=== PATIENT | male | born 1955 | race Hispanic/Latino ===

== ENCOUNTER → 2018-01-21 | Day surgery (SDC) | payer OTHER ==
[2018-01-19 11:07] LABS: BASOPHILS % 0.6 % (0.0-1.0); EOSINOPHILS # (AUTO) 0.1 (0.0-0.4); EOSINOPHILS % 1.1 % (0.0-6.0); HEMATOCRIT 47.5 % (38.2-49.6); HEMOGLOBIN 16.4 g/dL (14.0-18.0); LYMPHOCYTES # (AUTO) 1.5 (1.0-3.2); LYMPHOCYTES % 28.7 % (18.0-39.1); MEAN CORPUSCULAR HEMOGLOBIN 32.7 pg (28-32); MEAN CORPUSCULAR HGB CONC 34.5 g/dL (31-35); MEAN CORPUSCULAR VOLUME 94.8 fL (81-99); MONOCYTES # (AUTO) 0.4 (0.2-0.8); MONOCYTES % 8.1 % (4.4-11.3); NEUTROPHILS # (AUTO) 3.2 (2.1-6.9); NEUTROPHILS % 61.3 % (38.7-80.0); PLATELET COUNT 180 x10e3/uL (140-360); RED BLOOD COUNT 5.01 x10e6/uL (4.3-5.7); RED CELL DISTRIBUTION WIDTH 12.9 % (11.7-14.4)
[2018-01-19 11:28] LABS: ANION GAP 10.9 mmol/L (8-16); BLOOD UREA NITROGEN 11 mg/dL (7-26); BUN/CREATININE RATIO 13 (6-25); CALCIUM 9.4 mg/dL (8.4-10.2); CARBON DIOXIDE 28 mmol/L (22-29); CHLORIDE 100 mmol/L (98-107); CREATININE, SERUM 0.85 mg/dL (0.72-1.25); EST GLOMERULAR FILTRATION RATE > 60 ML/MIN (60-); GLUCOSE 103 mg/dL (74-118); POTASSIUM 3.9 mmol/L (3.5-5.1); SODIUM 135 mmol/L (136-145)
[~2018-01-21] MED LIST: ACETAMINOPHEN 1000 MG/100 ML IV ONE; BUPIVACAINE 0.25%/EPI 30ML SDV INJ ONE; CEFAZOLIN SOD 1 GM/D5W 50ML 50 ML IV ONE; DEXAMETHASONE SOD PHOS INJ 4 MG/ML VIAL ONE; EPHEDRINE SULFATE INJ 50 MG/10 ML SYR ONE; FENTANYL CITRATE/PF 100MCG/2 ML INJ ONE; GLYCOPYRROLATE 0.2 MG/ML VIAL ONE; LIDOCAINE HCL 2% LOCAL INJ 5 ML SDV VIAL INJ ONE; MIDAZOLAM HCL 2 MG/2 ML VIAL ONE; ONDANSETRON HCL INJ 2 MG/ML VIAL ONE; PROPOFOL IV EMULSION 10 MG/ML 20 ML VIAL ONE; ROCURONIUM BROMIDE 10 MG/ML 5ML VIAL ONE; SEVOFLURANE INHAL SOLN 250 ML PEN BTL ONE
--- NOTE | 2018-01-21 09:52 | Operative Report ---
DATE OF PROCEDURE: January 21, 2018 PREOPERATIVE DIAGNOSIS: Right inguinal hernia. POSTOPERATIVE DIAGNOSIS: Right inguinal hernia. PROCEDURE PERFORMED: Repair of right inguinal hernia with Ultrapro Hernia System oval type. QUALITY SYSTEMS TECHNICIAN: CARTER Nuñez ESTIMATED BLOOD LOSS: Minimal. DRAINS: None. COMPLICATIONS: None. INDICATIONS AND FINDINGS: The patient is a 62-year-old male who has been complaining of pain in the right groin for several days. INTRAOPERATIVE FINDINGS: The patient had a saccular type of herniation at the level of the pubic tubercle with herniation of perivesical fat. The Ultrapro Hernia System, oval type, was placed, covering the direct space as well as the inguinal canal floor. DESCRIPTION OF PROCEDURE: With the patient lying on the operative table in the supine position, after administration of general anesthesia, he was prepped and draped for repair of a right inguinal hernia. Preemptive anesthesia was given with 0.25% Marcaine with epinephrine as an ilioinguinal nerve block and an incisional nerve block. A transverse groin incision was made and deepened through the skin, subcutaneous tissue and Bradly fascia until the external oblique aponeurosis was identified. This was incised along the course of its fibers, transecting the external inguinal ring. Medial and lateral leaves were developed. The cord was mobilized at the level of the pubic tubercle and retracted away from the operative field by a Irena drain. The cremaster veil was incised. An indirect hernia sac was not found. A small lipoma of the cord was excised with electrocautery and tied off with 2-0 Vicryl. After we did that, we paid attention to the inguinal canal floor, and the herniation was at the level of the pubic tubercle. It was saccular in type with herniation of perivesical fat. After we dissected the hernia from the pubic tubercle defect, carefully preserving the urinary bladder, we then placed an Ultrapro Hernia System, oval type, with the underlay part of the mesh over the direct space, after we had bluntly dissected the space and carefully preserving the urinary bladder also. We then placed the overlay part of the mesh over the inguinal canal floor and slit the mesh to accommodate the cord. Then we secured the mesh to the local tissues using a series of interrupted 2-0 Ethibond suture. The ilioinguinal nerve was preserved as the placement of the mesh was somewhat lower than usual due to the fact that this was mainly a distal defect of the floor. We then went ahead and irrigated the wound and then closed the incision with 2-0 Vicryl for the external oblique aponeurosis and 2-0 plain catgut for the soft tissues. Then the skin was closed using eusebia. Sterile dressing was applied. The patient tolerated the procedure well and was taken to recovery room in satisfactory condition. The sponge and instrument counts were pronounced correct multiple times during this procedure. Job#: [id number]
[2018-01-21 10:15] VITALS: BP 145/78
== END | disposition home or self-care (01) ==
LOC: OR 05:34
PROVIDERS: ATTEND Surgery
DX: K40.90 Unilateral inguinal hernia, without obstruction or gangrene, not specified as recurrent (principal); D17.6 Benign lipomatous neoplasm of spermatic cord; E11.9 Type 2 diabetes mellitus without complications; Z01.810 Encounter for preprocedural cardiovascular examination; Z01.812 Encounter for preprocedural laboratory examination; Z68.36 Body mass index [BMI] 36.0-36.9, adult
CPT/HCPCS: 36415; 49505; 80048; 85025; 93005; C1781; J0131; J0690; J1100; J2001; J2250; J2405; J2704

== ENCOUNTER 2018-01-23 14:07 | Emergency (ER) | payer OTHER ==
[~2018-01-23] VITALS: Ht 175.3 cm; Wt 108.9 kg
== END 2018-01-23 16:25 | disposition home or self-care (01) ==
LOC: ER 14:07
DX: N50.89 Other specified disorders of the male genital organs (principal); E11.9 Type 2 diabetes mellitus without complications
CPT/HCPCS: 99282

== ENCOUNTER 2018-06-25 19:11 | Emergency (ER) | payer OTHER ==
[~2018-06-25] VITALS: Ht 175.3 cm; Wt 108.9 kg
== END 2018-06-25 19:48 | disposition home or self-care (01) ==
LOC: ER 19:11
DX: R10.31 Right lower quadrant pain (principal)
CPT/HCPCS: 99282